=== PATIENT | female | born 1980 | race Two or more races ===

== ENCOUNTER → 2024-09-04 | Outpatient (CLI) | payer MEDICAID, SELFPAY ==
--- NOTE | 2024-09-04 09:29 | XR_ITS ---
Examination: Bilateral hands, 6 views. Technique: AP, Oblique, Lateral each hand total 6 views Date and time of exam: September 04, 2024 0948 hours INDICATIONS: Bilateral hand pain several years Findings: Mild osteopenia Mild diffuse narrowing joints of the wrist and hands bilaterally No fractures No erosive or other significant arthritic change IMPRESSION: Mild diffuse narrowing joints of the wrists and hands bilaterally No erosive arthritis
== END | disposition home or self-care (01) ==
LOC: CDIM 09:12
PROVIDERS: PCP Student in an Organized Health Care Education/Training Program; Referring Provider Student in an Organized Health Care Education/Training Program; Visit Provider Student in an Organized Health Care Education/Training Program
DX: M25.842 Other specified joint disorders, left hand (principal); M25.841 Other specified joint disorders, right hand; M25.832 Other specified joint disorders, left wrist; M25.831 Other specified joint disorders, right wrist
CPT/HCPCS: 73130

== ENCOUNTER → 2025-06-15 | Outpatient (CLI) | payer MEDICAID, SELFPAY ==
--- NOTE | 2025-06-15 10:30 | XR_ITS ---
EXAMINATION: Ultrasound soft tissue extremity left arm TECHNIQUE: Grayscale sonographic images soft tissue left arm Date and time: June 15, 2025, 10:41 a.m. INDICATIONS: Lump in the left arm laterally noticed beginning 4 years ago. FINDINGS: No cystic or solid mass at the area of concern IMPRESSION: No cystic or solid mass at the area of concern, consider MRI soft tissue left ARM follow-up without contrast as clinically warranted
== END | disposition home or self-care (01) ==
PROVIDERS: PCP Physician Assistant; Referring Provider Physician Assistant; Visit Provider Physician Assistant
DX: R22.32 Localized swelling, mass and lump, left upper limb (principal)
CPT/HCPCS: 76882